=== PATIENT | male | born 1990 | race African-American/Black ===

== ENCOUNTER 2022-04-16 14:46 | Emergency (ER) | payer BC ==
[2022-04-16] MEDS ORDERED: Acetaminophen 325 MG Tab PO ONE (18:19)
[2022-04-16] MEDS ORDERED: Ibuprofen 400 MG Tab PO ONE (18:19)
[2022-04-16] MEDS ORDERED: Amoxicillin/Clavulanate K 875-125 MG Tab PO ONE (18:20)
== END 2022-04-16 18:57 | disposition home or self-care (01) ==
LOC: MW.ED 14:46
DX: K08.89 Other specified disorders of teeth and supporting structures (principal)
CPT/HCPCS: 99282; A9270